=== PATIENT | female | born 1985 | race Caucasian/White ===

== ENCOUNTER 2017-07-30 16:52 | Emergency (ER) | payer MEDICAID ==
[~2017-07-30] VITALS: Ht 162.6 cm; Wt 67.0 kg
[2017-07-30 16:54] VITALS: BP 150/91
== END 2017-07-30 17:27 | disposition left against medical advice (07) ==
LOC: ED 17:20
DX: K02.9 Dental caries, unspecified (principal); G43.909 Migraine, unspecified, not intractable, without status migrainosus
CPT/HCPCS: 99283

== ENCOUNTER 2019-04-02 09:41 | Emergency (ER) | payer MEDICAID ==
[~2019-04-02] VITALS: Ht 162.6 cm; Wt 57.4 kg
[2019-04-02 09:43] VITALS: BP 117/82
[2019-04-02] MEDS ORDERED: DEXAMETHASONE 4 MG/ML, 1ML ONE (10:20)
[2019-04-02] MEDS ORDERED: HYDROcodone/APAP 7.5-325MG/15ML UDC ONE (10:20)
[2019-04-02] MEDS ORDERED: HYDROcodone/APAP 7.5-325MG/15ML UDC PO ONE (10:30)
[2019-04-02] MEDS ORDERED: DEXAMETHASONE 4 MG/ML, 1ML PO ONE (10:30)
--- NOTE | 2019-04-02 10:30 | NUR ---
late entry d/t patient care: patient asking to leave AMA as her aws architect needs her to return home. pt refuses lortab. praneeth wood notified, praneeth spoke to patient prior to dc and was unable to convice pt to stay. pt a&o, resps even and unlabored, signed ama paperwork. pt amb to dc desk with steady gait. nadn at departure.
--- NOTE | 2019-04-02 10:45 | NUR ---
late entry d/t patient care: cxr and lab results reviewed by [facility]pa, pt called pt's home number numerous times and was unable to reach pt. pt's results and script given to throughput RN to place in culture book.
== END 2019-04-02 10:32 | disposition left against medical advice (07) ==
LOC: ED 10:26
DX: J15.9 Unspecified bacterial pneumonia (principal); J03.00 Acute streptococcal tonsillitis, unspecified; F17.200 Nicotine dependence, unspecified, uncomplicated
CPT/HCPCS: 71046; 87880; 99284; J1100